=== PATIENT | male | born 1980 ===

== ENCOUNTER → 2022-10-03 | Outpatient (CLI) | payer SELFPAY ==
[~2022-10-03] MED LIST: ARIP15; BENZ2 PO; BUPR150T2; DIVA500EC PO; HALO5 PO; RISP1; ZIPR60; ZIPR60 PO; ZIPR80
[2022-10-03 19:32] LABS: BASOPHILS ABSOLUTE AUTO 0.02 K/mm3 (0.00-0.23); BASOPHILS PERCENT AUTO 0 % (0-2); EOSINOPHILS ABSOLUTE AUTO 0.02 K/mm3 (0.00-0.68); EOSINOPHILS PERCENT AUTO 0 % (0-6); Hematocrit 47.5 % (37.0-53.0); Hemoglobin 16.5 g/dL (13.5-17.5); IMMATURE GRAN ABSOLUTE AUTO 0.03 K/mm3 (0.00-0.10); IMMATURE GRAN PERCENT AUTO 0 % (0-1); LYMPHOCYTES PERCENT AUTO 19 % (21-46); MONOCYTES ABSOLUTE AUTO 0.66 K/mm3 (0.16-1.47); MONOCYTES PERCENT AUTO 7 % (4-13); Mean Corpuscular HGB 29.5 pg (26.0-34.0); Mean Corpuscular HGB Conc 34.7 g/dL (31.5-36.5); Mean Corpuscular Volume 85 fL (80-100); Mean Platelet Volume 10.4 fL (9.1-12.4); NEUTROPHILS ABSOLUTE AUTO 7.33 K/mm3 (1.96-9.15); NEUTROPHILS PERCENT AUTO 74 % (41-73); Platelet Count 277 K/mm3 (150-400); RDW Coefficient Variation 12.9 % (11.7-14.2); RDW Standard Deviation 39.8 fL (35.1-46.3); White Blood Cell Count 9.96 K/mm3 (4.00-11.30)
[2022-10-03 19:45] LABS: Albumin/Globulin Ratio 1.2 (0.8-1.8); Bilirubin, Total 0.5 mg/dL (0.1-1.0); Bun/Creatinine Ratio 13.2 (12.0-20.0); Calcium, Blood 9.1 mg/dL (8.5-10.1); Creatinine, Blood 0.91 mg/dL (0.60-1.20); Globulin, Blood 3.3 g/dL (2.2-4.0); Potassium, Blood 3.9 mmol/L (3.5-5.5); Total Protein, Blood 7.3 g/dL (6.4-8.2)
== END | disposition home or self-care (01) ==
LOC: LAB 18:18 → LAB SHORT 18:18
PROVIDERS: Family Medicine
DX: F25.9 Schizoaffective disorder, unspecified (principal)
CPT/HCPCS: 80053; 85025

== ENCOUNTER 2023-10-22 17:20 | Observation (INO) | payer MEDICARE ==
[~2023-10-22] VITALS: Ht 180.3 cm; Wt 95.2 kg
[2023-10-23 11:18] VITALS: BP 128/74
== END 2023-10-23 14:11 ==
LOC: ER 17:20 → EOR 17:21
PROVIDERS: ADMIT Student in an Organized Health Care Education/Training Program
DX: F25.0 Schizoaffective disorder, bipolar type (principal); F17.210 Nicotine dependence, cigarettes, uncomplicated; Z79.899 Other long term (current) drug therapy